=== PATIENT | female | born 2005 | race Caucasian/White ===

== ENCOUNTER 2024-05-30 12:50 | Outpatient (CLI) | payer BC, SELFPAY ==
--- NOTE | ~2024-05-30 | US_ITS ---
EXAMINATION: US pelvic complete w TV DATE: 05/30/2024 13:15 INDICATION: Abnormal uterine and vaginal bleeding. TECHNIQUE: Multiple transabdominal and transvaginal sonographic images of the pelvis were obtained. COMPARISON: None. FINDINGS: TRANSABDOMINAL ULTRASOUND: The uterus measures 7.2 x 5.1 x 3.1 cm. There is no free fluid in the pelvis. TRANSVAGINAL ULTRASOUND: The endometrial complex measures 5 mm in thickness. There is an intrauterine device in expected posit ion. The right ovary measures 2.5 x 1.6 x 2.2 cm. The left ovary measures 2.6 x 2.3 x 1.2 cm. There i s normal vascular flow in the ovaries. IMPRESSION: 1. Normal pelvis. Intrauterine device in expected position. Reviewed, dictated and finalized at location E.
== END 2024-05-30 12:51 ==
PROVIDERS: PCP Emergency Medicine; Visit Provider Obstetrics & Gynecology
DX: N93.9 Abnormal uterine and vaginal bleeding, unspecified (principal); R10.2 Pelvic and perineal pain; Z30.431 Encounter for routine checking of intrauterine contraceptive device
CPT/HCPCS: 76830; 76856